=== PATIENT | female | born 1940 | race Two or more races ===

== ENCOUNTER → 2024-08-21 | Emergency (ER) | payer OTHER ==
[~2024-08-21] VITALS: Ht 127 cm; Wt 83.9 kg
[~2024-08-21] MED LIST: COZAAR25 MG PO; INSULIN SYRING1 EA29 MC; METFORMIN HCL500 MG
[2024-08-21 00:17] VITALS: BP 164/77; O2SAT 95
== END | disposition left against medical advice (07) ==
LOC: ER 00:05
DX: Z53.21 Procedure and treatment not carried out due to patient leaving prior to being seen by health care provider (principal)